=== PATIENT | male | born 1980 | race Caucasian/White ===

== ENCOUNTER 2021-10-22 16:18 | Emergency (ER) | payer SELFPAY ==
[~2021-10-22] VITALS: Ht 185.4 cm; Wt 90.7 kg
[2021-10-22 17:17] VITALS: BP 118/95
[2021-10-22] MEDS ORDERED: IBUP800T27 PO (17:26)
[2021-10-22] MEDS ORDERED: KETOROLAC TROMETH 60MG/2ML VIAL IM ONE (17:30)
[2021-10-22] MEDS ORDERED: BACL10TA PO (17:37)
== END 2021-10-22 17:44 | disposition home or self-care (01) ==
LOC: ER 16:18
DX: S83.91XA Sprain of unspecified site of right knee, initial encounter (principal); V86.56XA Driver of dirt bike or motor/cross bike injured in nontraffic accident, initial encounter; Y93.89 Activity, other specified; Y92.89 Other specified places as the place of occurrence of the external cause; Y99.8 Other external cause status
CPT/HCPCS: 29505; 73562; 96372; 99283; J1885